=== PATIENT | female | born 1945 | race Hispanic/Latino ===

== ENCOUNTER 2016-11-22 15:09 | Emergency (ER) | payer MEDICARE, OTHER ==
[~2016-11-22] VITALS: Ht 154.9 cm; Wt 77.7 kg
[~2016-11-22 15:09] MED LIST: ALLOPURINOL300 MG PO; AMLODIPINE10 MG PO; ASPIRIN ADULT L81 MG PO; ATENOL/CHLOR1 TA2 PO; BACTRIM DS1 TAB PO; CHLORTHALID25 MG PO; DOXYCYCL HYC100 MG PO; FLUARIX QUADRIV1 INJ IM; KENALOG-4040 MG/ML IM; LATANOPROST0.005 % OP; LIPITOR20 M1 PO; LOSARTAN/HCT1 TA2 PO; Levaquin PO; MEDDOSEPAK PO; MUCINEX600 MG PO; NYSTATIN100000 M1 PO; PREDNISONE20 MG PO; PRILOSEC20 MG PO; PROMETHAZINE12.5 M4 PO; TRAMADOL HCL50 MG PO
[2016-11-22] MEDS ORDERED: LOSARTAN POTASS50 MG PO (15:57)
[2016-11-22] MEDS ORDERED: EQL FLUTIC50 MCG/ACT NAB (15:58)
[2016-11-22] MEDS ORDERED: PROLIA60 MG/ML SC (16:00)
[2016-11-22 16:24] LABS: HEMATOCRIT 42.9 % (37.0-47.0); HEMOGLOBIN 14.2 g/dl (12.0-16.0); IMMATURE GRANULOCYTES 0.6 % (0.0-1.0); MEAN CELL VOLUME 94.7 fL CALC (80.0-100.0); MEAN CORPUSCULAR HGB 31.3 pG CALC (26.0-32.0); MEAN CORPUSCULAR HGB CONC 33.1 g/L CALC (32.0-36.0); NEUT# 6.24 thou/uL (2.00-7.15); RED BLOOD COUNT 4.53 mill/uL (4.20-5.60); RED CELL DISTRI WIDTH 13.9 % (11.5-15.5)
[2016-11-22 16:31] LABS: ALBUMIN 4.6 g/dL (3.2-5.0); ALKALINE PHOSPHATASE 124 u/l (38-126); AMYLASE 92 u/l (30-110); ANION GAP 17 (6-22 (CALC)); BILIRUBIN, TOTAL 0.7 mg/dL (0.0-1.4); BUN 13 mg/dL (8-23); BUN/CREATININE RATIO 12 (12-20 (CALC)); CALCIUM 9.4 mg/dL (8.4-10.2); CARBON DIOXIDE 22 mmol/l (22-30); CHLORIDE 108 mmol/l (95-108); GFR 55 ML/MIN (>=60 (CALC)); GFR FOR AFR.AMER. > 60 ML/MIN (>=60 (CALC)); GLUCOSE 111 mg/dL (82-115); LIPASE 209 u/l (23-300); POTASSIUM 3.8 mmol/l (3.5-5.1); SGOT/AST 36 u/l (9-36); SGPT/ALT 54 u/l (11-66); SODIUM 143 mmol/l (137-146); TOTAL PROTEIN 7.8 g/dL (6.3-8.2)
[2016-11-22 16:41] LABS: URINE BILIRUBIN - DIPSTICK NEGATIVE (NEGATIVE); URINE BLOOD DIPSTICK MODERATE (NEGATIVE); URINE CLARITY CLEAR; URINE COLOR YELLOW; URINE GLUCOSE - DIPSTICK NEGATIVE (NEGATIVE); URINE KETONE NEGATIVE (NEGATIVE); URINE LEUK ESTERASE TRACE (NEGATIVE); URINE NITRITE - DIPSTICK NEGATIVE (Negative); URINE PROTEIN - DIPSTICK 30 mg/dL (NEG-TRACE); URINE UROBILINOGEN - DIPSTICK 0.2 E.U./dL (0.2)
[2016-11-22 16:51] LABS: URINE SQUAMOUS EPITHELIAL CELL FEW EPI/hpf (0-FEW)
[2016-11-22] MEDS ORDERED: CIPROFLOXACN500 MG PO (19:13)
[2016-11-22] MEDS ORDERED: ULTRAM50 M1 PO (19:13)
[2016-11-22 19:52] VITALS: BP 168/75
== END 2016-11-22 19:55 | disposition home or self-care (01) ==
LOC: ED 15:09
PROVIDERS: Emergency Medicine
DX: R10.31 Right lower quadrant pain (principal); N39.0 Urinary tract infection, site not specified; I10 Essential (primary) hypertension
CPT/HCPCS: J1956; Q9967

== ENCOUNTER 2016-11-26 08:23 | Emergency (ER) | payer MEDICARE, OTHER ==
[~2016-11-26] VITALS: Ht 154.9 cm; Wt 77.7 kg
[~2016-11-26 08:23] MED LIST changes: +CIPROFLOXACN500 MG PO; +EQL FLUTIC50 MCG/ACT NAB; +LOSARTAN POTASS50 MG PO; +PROLIA60 MG/ML SC; +ULTRAM50 M1 PO
[2016-11-26] MEDS ORDERED: LIPITOR20 MG PO (09:46)
[2016-11-26 09:49] LABS: ALBUMIN 4.2 g/dL (3.2-5.0); BILIRUBIN, TOTAL 0.8 mg/dL (0.0-1.4); CALCIUM 9.4 mg/dL (8.4-10.2); CREATININE 1.3 mg/dL (0.5-1.0); HEMATOCRIT 41.6 % (37.0-47.0); HEMOGLOBIN 13.8 g/dl (12.0-16.0); IMMATURE GRANULOCYTES 0.5 % (0.0-1.0); MEAN CELL VOLUME 94.5 fL CALC (80.0-100.0); MEAN CORPUSCULAR HGB 31.4 pG CALC (26.0-32.0); MEAN CORPUSCULAR HGB CONC 33.2 g/L CALC (32.0-36.0); NEUT# 4.83 thou/uL (2.00-7.15); POTASSIUM 3.8 mmol/l (3.5-5.1); RED BLOOD COUNT 4.4 mill/uL (4.20-5.60); RED CELL DISTRI WIDTH 13.9 % (11.5-15.5); TOTAL PROTEIN 7.2 g/dL (6.3-8.2)
[2016-11-26] MEDS ORDERED: PROTONIX20 M1 PO (09:49)
[2016-11-26] MEDS ORDERED: METRONIDAZOL500 MG PO (09:50)
[2016-11-26 12:40] LABS: URINE BILIRUBIN - DIPSTICK NEGATIVE (NEGATIVE); URINE BLOOD DIPSTICK SMALL (NEGATIVE); URINE COLOR YELLOW; URINE GLUCOSE - DIPSTICK NEGATIVE (NEGATIVE); URINE KETONE NEGATIVE (NEGATIVE); URINE NITRITE - DIPSTICK NEGATIVE (Negative); URINE PROTEIN - DIPSTICK NEGATIVE (NEG-TRACE); URINE UROBILINOGEN - DIPSTICK 0.2 E.U./dL (0.2)
[2016-11-26 12:44] LABS: URINE CLARITY SLIGHT CLOUDY; URINE LEUK ESTERASE TRACE (NEGATIVE)
[2016-11-26 12:46] LABS: URINE EPITHELIAL CELLS FEW EPI/hpf (0-FEW); URINE RBC 0-2 RBC/hpf (0-5); URINE WBC 0-2 WBC/hpf (0-5)
[2016-11-26] MEDS ORDERED: CEPHALEXIN500 MG PO (13:16)
[2016-11-26] MEDS ORDERED: ULTRAM50 M1 PO (13:16)
[2016-11-26 13:32] VITALS: BP 145/68
== END 2016-11-26 13:32 | disposition home or self-care (01) ==
LOC: ED 08:23
PROVIDERS: Emergency Medicine
DX: N39.0 Urinary tract infection, site not specified (principal); M54.5 Low back pain; K21.9 Gastro-esophageal reflux disease without esophagitis; M10.9 Gout, unspecified; I10 Essential (primary) hypertension; E78.5 Hyperlipidemia, unspecified; M19.90 Unspecified osteoarthritis, unspecified site; M81.0 Age-related osteoporosis without current pathological fracture; Z85.42 Personal history of malignant neoplasm of other parts of uterus

== ENCOUNTER 2017-05-25 07:49 | Emergency (ER) | payer MEDICARE, OTHER ==
[~2017-05-25] VITALS: Ht 154.9 cm; Wt 76.4 kg
[~2017-05-25 07:49] MED LIST changes: +CEPHALEXIN500 MG PO; +LIPITOR20 MG PO; +METRONIDAZOL500 MG PO; +PROTONIX20 M1 PO
[2017-05-25] MEDS ORDERED: RANITIDINE150 M1 PO (08:43)
[2017-05-25 09:40] VITALS: BP 145/74
== END 2017-05-25 09:40 | disposition home or self-care (01) ==
LOC: ED 07:49
PROC: 2W3RX1Z Immobilization of Left Lower Leg using Splint (ICD-10-PCS; principal; 2017-05-25)
DX: M25.572 Pain in left ankle and joints of left foot (principal); M25.561 Pain in right knee; R22.42 Localized swelling, mass and lump, left lower limb; W19.XXXA Unspecified fall, initial encounter; Y93.89 Activity, other specified; Y92.009 Unspecified place in unspecified non-institutional (private) residence as the place of occurrence of the external cause

== ENCOUNTER 2017-08-21 07:59 | Day surgery (SDC) | payer MEDICARE, OTHER ==
[~2017-08-21] VITALS: Ht 154.9 cm; Wt 73.5 kg
[~2017-08-21 07:59] MED LIST changes: +OMEPRAZOLE10 MG PO; +RANITIDINE150 M1 PO
[2017-08-21] MEDS ORDERED: CARAFATE PO (10:02)
[2017-08-21] MEDS ORDERED: PROTONIX40 M2 PO (10:02)
[2017-08-21 10:14] VITALS: BP 123/57
== END 2017-08-21 10:47 | disposition home or self-care (01) ==
LOC: ENDO 07:59 → ORM 09:45 → ENDO 09:45
PROVIDERS: ATTEND Surgery
PROC: 0DB68ZX Excision of Stomach, Via Natural or Artificial Opening Endoscopic, Diagnostic (ICD-10-PCS; principal; 2017-08-21)
PROC: 0DB78ZX Excision of Stomach, Pylorus, Via Natural or Artificial Opening Endoscopic, Diagnostic (ICD-10-PCS; 2017-08-21)
PROC: 0DBP8ZX Excision of Rectum, Via Natural or Artificial Opening Endoscopic, Diagnostic (ICD-10-PCS; 2017-08-21)
DX: K25.4 Chronic or unspecified gastric ulcer with hemorrhage (principal); K29.71 Gastritis, unspecified, with bleeding; K57.31 Diverticulosis of large intestine without perforation or abscess with bleeding; Q43.8 Other specified congenital malformations of intestine; D12.8 Benign neoplasm of rectum; K21.9 Gastro-esophageal reflux disease without esophagitis; K43.2 Incisional hernia without obstruction or gangrene; Z85.42 Personal history of malignant neoplasm of other parts of uterus; Z92.3 Personal history of irradiation

== ENCOUNTER 2022-09-21 11:20 | Inpatient (IN) | payer MEDICARE, MEDICAID ==
[~2022-09-21] VITALS: Ht 154.9 cm; Wt 75.0 kg
[2022-09-21] VITALS (14 sets, daily range): BP systolic 94–189; BP diastolic 54–102
[~2022-09-21 11:20] MED LIST changes: +CARAFATE PO; +PROTONIX40 M2 PO
[2022-09-21 12:24] LABS: BASO% 0.4 % (0-3); HEMATOCRIT 45.6 % (37.0-47.0); IMMATURE GRANULOCYTES 0.4 % (0.0-5.0); LYMPH% 9.3 % (15-41); MEAN CELL VOLUME 95.6 fL CALC (80.0-100.0); MEAN CORPUSCULAR HGB 31.4 pG CALC (26.0-32.0); MEAN CORPUSCULAR HGB CONC 32.9 g/dL CAL (32.0-36.0); MONO% 6.8 % (2-13); NEUT# 9.47 thou/uL (2.00-7.15); NEUT% 83.1 % (42-76); RED BLOOD COUNT 4.77 mill/uL (4.20-5.60); RED CELL DISTRI WIDTH 13.8 % (11.5-15.5)
[2022-09-21 12:34] LABS: ALBUMIN 4.8 g/dL (3.2-5.0); CREATININE 1.3 mg/dL (0.5-1.0); POTASSIUM 4.1 mmol/l (3.5-5.1)
[2022-09-21] MEDS ORDERED: ATORVASTATIN CA20 MG PO (14:00)
[2022-09-22] VITALS (8 sets, daily range): BP systolic 135–192; BP diastolic 52–87
[2022-09-22 03:28] LABS: URINE BILIRUBIN - DIPSTICK NEGATIVE (NEGATIVE); URINE BLOOD DIPSTICK SMALL (NEGATIVE); URINE COLOR YELLOW; URINE GLUCOSE - DIPSTICK NEGATIVE (NEGATIVE); URINE KETONE NEGATIVE (NEGATIVE); URINE PH 6.5 (4.5-8.0); URINE UROBILINOGEN - DIPSTICK 0.2 E.U./dL (0.2)
[2022-09-22 03:34] LABS: URINE LEUK ESTERASE SMALL (NEGATIVE); URINE NITRITE - DIPSTICK NEGATIVE (Negative)
[2022-09-22 03:35] LABS: URINE PROTEIN - DIPSTICK NEGATIVE (NEG-TRACE)
[2022-09-22 05:10] LABS: MEAN CELL VOLUME 97.8 fL CALC (80.0-100.0); MEAN CORPUSCULAR HGB 32.1 pG CALC (26.0-32.0); MEAN CORPUSCULAR HGB CONC 32.8 g/dL CAL (32.0-36.0); RED BLOOD COUNT 3.71 mill/uL (4.20-5.60); RED CELL DISTRI WIDTH 13.9 % (11.5-15.5)
[2022-09-22 05:22] LABS: HEMATOCRIT 36.3 % (37.0-47.0); HEMOGLOBIN 11.9 g/dl (12.0-16.0)
[2022-09-22 05:29] LABS: ALKALINE PHOSPHATASE 75 u/l (38-126); ANION GAP 12 (6-22 (CALC)); BUN 13 mg/dL (8-23); BUN/CREATININE RATIO 14 (12-20 (CALC)); CARBON DIOXIDE 23 mmol/l (22-30); CHLORIDE 105 mmol/l (95-108); CREATININE 0.9 mg/dL (0.5-1.0); GFR FOR AFR.AMER. > 60 ML/MIN (>=60 (CALC)); GFR OTHER RACES > 60 ML/MIN (>=60 (CALC)); POTASSIUM 3.7 mmol/l (3.5-5.1); SGOT/AST 28 u/l (9-36); SODIUM 136 mmol/l (137-146)
[2022-09-22 05:42] LABS: ALBUMIN 3.6 g/dL (3.2-5.0); BILIRUBIN, TOTAL 0.5 mg/dL (0.02-1.3); MAGNESIUM 1.3 mg/dL (1.6-2.3); TOTAL PROTEIN 6.2 g/dL (6.3-8.2)
[2022-09-23] VITALS (7 sets, daily range): BP systolic 141–156; BP diastolic 55–66
[2022-09-23 05:43] LABS: HEMOGLOBIN 12.2 g/dl (12.0-16.0); MEAN CELL VOLUME 95.9 fL CALC (80.0-100.0); MEAN CORPUSCULAR HGB 31.6 pG CALC (26.0-32.0); RED BLOOD COUNT 3.86 mill/uL (4.20-5.60); RED CELL DISTRI WIDTH 13.9 % (11.5-15.5)
[2022-09-23 05:58] LABS: ALBUMIN 3.3 g/dL (3.2-5.0); ALKALINE PHOSPHATASE 97 u/l (38-126); ANION GAP 15 (6-22 (CALC)); BILIRUBIN, TOTAL 0.5 mg/dL (0.02-1.3); BUN 11 mg/dL (8-23); BUN/CREATININE RATIO 13 (12-20 (CALC)); CARBON DIOXIDE 22 mmol/l (22-30); CHLORIDE 103 mmol/l (95-108); CREATININE 0.9 mg/dL (0.5-1.0); GFR FOR AFR.AMER. > 60 ML/MIN (>=60 (CALC)); GFR OTHER RACES > 60 ML/MIN (>=60 (CALC)); POTASSIUM 3.6 mmol/l (3.5-5.1); SGOT/AST 35 u/l (9-36); SODIUM 137 mmol/l (137-146)
[2022-09-23 06:06] LABS: MAGNESIUM 2.3 mg/dL (1.6-2.3)
[2022-09-24 04:23] VITALS: BP 154/67
[2022-09-24 04:43] VITALS: BP 154/67
[2022-09-24 05:58] LABS: HEMATOCRIT 35.8 % (37.0-47.0); HEMOGLOBIN 11.8 g/dl (12.0-16.0); MEAN CELL VOLUME 94.7 fL CALC (80.0-100.0); MEAN CORPUSCULAR HGB 31.2 pG CALC (26.0-32.0); RED BLOOD COUNT 3.78 mill/uL (4.20-5.60); RED CELL DISTRI WIDTH 13.7 % (11.5-15.5)
[2022-09-24 06:19] LABS: ALBUMIN 3.6 g/dL (3.2-5.0); ALKALINE PHOSPHATASE 105 u/l (38-126); ANION GAP 12 (6-22 (CALC)); BILIRUBIN, TOTAL 0.6 mg/dL (0.02-1.3); BUN 13 mg/dL (8-23); BUN/CREATININE RATIO 14 (12-20 (CALC)); CARBON DIOXIDE 23 mmol/l (22-30); CHLORIDE 102 mmol/l (95-108); CREATININE 0.9 mg/dL (0.5-1.0); GFR FOR AFR.AMER. > 60 ML/MIN (>=60 (CALC)); GFR OTHER RACES > 60 ML/MIN (>=60 (CALC)); MAGNESIUM 1.9 mg/dL (1.6-2.3); POTASSIUM 3.1 mmol/l (3.5-5.1); SGOT/AST 37 u/l (9-36); SODIUM 134 mmol/l (137-146); TOTAL PROTEIN 6.8 g/dL (6.3-8.2)
[2022-09-24 06:33] LABS: C-REACTIVE PROTEIN 22.2 mg/dL (0-0.9)
[2022-09-24 07:20] VITALS: BP 137/63
[2022-09-24 08:08] VITALS: BP 136/67
[2022-09-24 15:17] VITALS: BP 145/60
[2022-09-24 20:49] VITALS: BP 138/52
[2022-09-25 04:36] VITALS: BP 142/70
[2022-09-25 06:57] VITALS: BP 140/61
[2022-09-25 10:34] VITALS: BP 133/60
[2022-09-25 14:30] VITALS: BP 120/44
[2022-09-25 19:12] VITALS: BP 156/70
[2022-09-25 20:01] VITALS: BP 156/70
[2022-09-26 04:07] VITALS: BP 140/54
[2022-09-26 04:33] VITALS: BP 140/54
[2022-09-26 05:58] LABS: HEMATOCRIT 35.7 % (37.0-47.0); HEMOGLOBIN 11.7 g/dl (12.0-16.0); MEAN CELL VOLUME 96.2 fL CALC (80.0-100.0); MEAN CORPUSCULAR HGB 31.5 pG CALC (26.0-32.0); MEAN CORPUSCULAR HGB CONC 32.8 g/dL CAL (32.0-36.0); RED BLOOD COUNT 3.71 mill/uL (4.20-5.60); RED CELL DISTRI WIDTH 13.8 % (11.5-15.5)
[2022-09-26 06:18] LABS: ALBUMIN 3.2 g/dL (3.2-5.0); ALKALINE PHOSPHATASE 117 u/l (38-126); ANION GAP 13 (6-22 (CALC)); BILIRUBIN, TOTAL 0.4 mg/dL (0.02-1.3); BUN 13 mg/dL (8-23); BUN/CREATININE RATIO 14 (12-20 (CALC)); CARBON DIOXIDE 25 mmol/l (22-30); CHLORIDE 103 mmol/l (95-108); CREATININE 0.9 mg/dL (0.5-1.0); GFR FOR AFR.AMER. > 60 ML/MIN (>=60 (CALC)); GFR OTHER RACES > 60 ML/MIN (>=60 (CALC)); MAGNESIUM 2.1 mg/dL (1.6-2.3); POTASSIUM 3.2 mmol/l (3.5-5.1); SGOT/AST 40 u/l (9-36); SODIUM 137 mmol/l (137-146); TOTAL PROTEIN 6.5 g/dL (6.3-8.2)
[2022-09-26 07:18] VITALS: BP 148/64
[2022-09-26 10:57] VITALS: BP 132/62
[2022-09-26 19:10] VITALS: BP 137/58
[2022-09-27 04:49] VITALS: BP 163/69
[2022-09-27 05:37] LABS: HEMOGLOBIN 11.7 g/dl (12.0-16.0); MEAN CELL VOLUME 95.5 fL CALC (80.0-100.0); MEAN CORPUSCULAR HGB CONC 32.5 g/dL CAL (32.0-36.0); RED BLOOD COUNT 3.77 mill/uL (4.20-5.60); RED CELL DISTRI WIDTH 13.8 % (11.5-15.5)
[2022-09-27 05:57] LABS: ALBUMIN 3.1 g/dL (3.2-5.0); ALKALINE PHOSPHATASE 132 u/l (38-126); ANION GAP 14 (6-22 (CALC)); BILIRUBIN, TOTAL 0.5 mg/dL (0.02-1.3); BUN 12 mg/dL (8-23); BUN/CREATININE RATIO 16 (12-20 (CALC)); CARBON DIOXIDE 24 mmol/l (22-30); CHLORIDE 106 mmol/l (95-108); CREATININE 0.8 mg/dL (0.5-1.0); GFR FOR AFR.AMER. > 60 ML/MIN (>=60 (CALC)); GFR OTHER RACES > 60 ML/MIN (>=60 (CALC)); MAGNESIUM 1.9 mg/dL (1.6-2.3); SGOT/AST 42 u/l (9-36); SODIUM 140 mmol/l (137-146); TOTAL PROTEIN 5.8 g/dL (6.3-8.2)
[2022-09-27 06:55] VITALS: BP 158/75
[2022-09-27 09:00] VITALS: BP 135/62
[2022-09-27 09:03] VITALS: BP 135/62
[2022-09-27] MEDS ORDERED: LEVOFLOXACIN750 MG PO (10:50)
[2022-09-27] MEDS ORDERED: ALBUTEROL108 MCG/AC IN (10:51)
== END 2022-09-27 12:29 | disposition home or self-care (01) | DRG 871 ==
LOC: ED 11:20 → MS2 14:21
PROVIDERS: Family Medicine; ADMIT Internal Medicine; ATTEND Internal Medicine
DX: A41.9 Sepsis, unspecified organism (principal); J18.9 Pneumonia, unspecified organism; N17.9 Acute kidney failure, unspecified; N12 Tubulo-interstitial nephritis, not specified as acute or chronic; R65.20 Severe sepsis without septic shock; R91.8 Other nonspecific abnormal finding of lung field; I10 Essential (primary) hypertension; E11.9 Type 2 diabetes mellitus without complications; E78.5 Hyperlipidemia, unspecified; M10.9 Gout, unspecified; H40.9 Unspecified glaucoma; K44.9 Diaphragmatic hernia without obstruction or gangrene; K21.9 Gastro-esophageal reflux disease without esophagitis; Z92.3 Personal history of irradiation; Z20.822 Contact with and (suspected) exposure to COVID-19; Z86.14 Personal history of Methicillin resistant Staphylococcus aureus infection; Z85.43 Personal history of malignant neoplasm of ovary
CPT/HCPCS: J0131; J1650; J3475; Q9967

== ENCOUNTER 2023-12-16 09:17 | Day surgery (SDC) | payer MEDICARE, MEDICAID ==
[~2023-12-16] VITALS: Ht 154.9 cm; Wt 68.5 kg
[~2023-12-16 09:17] MED LIST changes: +ALBUTEROL108 MCG/AC IN; +ASPIRIN 81 LOW81 MG PO; +ATORVASTATIN CA20 MG PO; +LEVOFLOXACIN750 MG PO; +OMEPRAZOLE DR40 MG PO; +PLAVIX75 MG PO
[2023-12-16] MEDS ORDERED: FAMOTIDINE 10MG/ML 2ML SDV IV ONE (09:20)
[2023-12-16] MEDS ORDERED: LACTATED RINGER'S 1,000 ML IV ONE (09:21)
[2023-12-16 10:29] VITALS: BP 143/69
[2023-12-16] MEDS ORDERED: PROPOFOL 200 MG/20 ML VIAL IV ONE (14:22)
[2023-12-16] MEDS ORDERED: GLYCOPYRROLATE 0.2 MG/ML IV ONE (14:22)
[2023-12-16] MEDS ORDERED: LIDOCAINE HCL 2% 2ML SDV IV ONE (14:22)
== END 2023-12-16 10:40 | disposition home or self-care (01) ==
LOC: ORM 09:17
PROVIDERS: ATTEND Internal Medicine Gastroenterology
PROC: 0DB98ZX Excision of Duodenum, Via Natural or Artificial Opening Endoscopic, Diagnostic (ICD-10-PCS; principal; 2023-12-16)
PROC: 0DB78ZX Excision of Stomach, Pylorus, Via Natural or Artificial Opening Endoscopic, Diagnostic (ICD-10-PCS; 2023-12-16)
DX: K29.70 Gastritis, unspecified, without bleeding (principal); K58.0 Irritable bowel syndrome with diarrhea; I12.9 Hypertensive chronic kidney disease with stage 1 through stage 4 chronic kidney disease, or unspecified chronic kidney disease; N18.31 Chronic kidney disease, stage 3a; Z87.891 Personal history of nicotine dependence